=== PATIENT | male | born 1990 | race Hispanic/Latino ===

== ENCOUNTER 2016-12-05 03:15 | Emergency (ER) | payer OTHER ==
[2016-12-05 03:31] VITALS: BP 112/68; PULSE 133; RESP 17; O2SAT 100
[2016-12-05] MEDS ORDERED: Sodium Chloride 0.9% 1,000 ML IV STA (03:44)
[2016-12-05] MEDS ORDERED: Dexamethasone 10 MG in Sodium Chloride 0.9% 50 ML IV STA (03:44)
--- NOTE | 2016-12-05 04:13 | ED PDOC ---
HPI: General Adult Time Seen by Provider: 12/05/16 03:24 Chief Complaint (Nursing): Flu-like Symptoms Chief Complaint (Provider): Flu-Like Symptoms History Per: Patient History/Exam Limitations: no limitations Onset/Duration Of Symptoms: Days (x4) Current Symptoms Are (Timing): Still Present Additional Complaint(s): 3:24 Abbe Syed is a 26 year old male with a past medical history of psoriasis that presents to the ED with a chief complaint of a fever that he has been experiencing for the last four days with associated vomiting, diarrhea, myalgias , fatigue, and sore throat. Patient states that he was seen yesterday by a nurse practitioner at an Urgent Care facility, where he was tested for the flu and strep throat. He was prescribed viscous Lidocaine, which he reports gave him some relief of his symptoms. However, his high temperature of 103.7 Fahrenheit this mornign concerned him, and prompted his visit to the ED. He states that despite his intermittent vomiting and diarrhea he has largely been able to drink fluids. Patient reports noticing and enlargement of the glands in his neck, and denies any abdominal pain, cough, or rhinorrhea. PMD: [facility] Past Medical History Reviewed: Historical Data, Nursing Documentation, Vital Signs Vital Signs: Last Vital Signs Temp 102.7 F H 12/05/16 03:28 Pulse 133 H 12/05/16 03:28 Resp 17 12/05/16 03:28 BP 112/68 12/05/16 03:28 Pulse Ox 100 12/05/16 04:22 - Medical History Other PMH: psoriasis - Family History Family History: States: Unknown Family Hx - Home Medications Home Medications: Ambulatory Orders Medication Instructions Recorded Ondansetron ODT [Zofran ODT] 4 mg PO Q6 PRN #16 odt 12/05/16 - Allergies Allergies/Adverse Reactions: Allergies Allergy/AdvReac Type Severity Reaction Status Date / Time No Known Allergies Allergy Verified 12/05/16 03:28 Review of Systems Constitutional: Positive for: Fever, Chills, Malaise, Other (Body Aches) ENT: Negative for: Nose Discharge Respiratory: Negative for: Cough Gastrointestinal: Positive for: Vomiting, Diarrhea. Negative for: Abdominal Pain Physical Exam - Reviewed Nursing Documentation Reviewed: Yes Vital Signs Reviewed: Yes - Physical Exam Appears: Positive for: Non-toxic, No Acute Distress Head Exam: Positive for: ATRAUMATIC, NORMOCEPHALIC Skin: Positive for: Normal Color, Warm, Dry, Rash (diffuse psoriatic rash) ENT: Positive for: Pharynx Is (erythemous), Tonsillar Swelling (tonsils enlarged bilaterally, but no exudate; 2+), Other (dry mucous membranes). Negative for: Tonsillar Exudate Cardiovascular/Chest: Negative for: Regular Rate, Rhythm (tachycardic) Lymphatic: Positive for: Adenopathy (cervical anterior adenopathy that is more prominent on the right ) Neurologic/Psych: Positive for: Alert, Oriented Comments: Patient is febrile - Laboratory Results Result Diagrams: 12/05/16 04:26 12/05/16 04:26 - ECG O2 Sat by Pulse Oximetry: 100 (RA) Pulse Ox Interpretation: Normal Medical Decision Making Medical Decision Makin:44 Initial Impression: 26 year old male with fever and sore throat Initial Plan: * CMP * CBC * Flu Swab * Rapid Strep * [place] * Blood Culture * Decadron 10 mg IV * Sodium Chloride 1000 mL at 1000 mLs/hr * Tylenol 975 mg PO * Reevaluation 5:25 Labs reviewed, no clinical abnormalities. Patient reports significant improvement in symptoms, stable for discharge home. Provider discussed lab results at length, and the fact that negative mono does not entirely exclude mono. In the provider's opinion, patient's clinical presentation is highly suggestive of mono, and patient was given information regarding mono. Rx for Zofran provided, and patient will follow up with [facility]. Scribe Attestation: Documented by Tamica Sanches, acting as a scribe for Uday Griggs MD. Provider Scribe Attestation: All medical record entries made by the Scribe were at my direction and personally dictated by me. I have reviewed the chart and agree that the record accurately reflects my personal performance of the history, physical exam, medical decision making, and the department course for this patient. I have also personally directed, reviewed, and agree with the discharge instructions and disposition. Disposition - Clinical Impression Clinical Impression: Pharyngitis, Mononucleosis syndrome - Disposition Referrals: [facility] [Outside] [facility] [Outside] Disposition: Routine/Home Disposition Time: 05:25 Condition: STABLE Prescriptions: Ondansetron ODT [Zofran ODT] 4 mg PO Q6 PRN #16 odt PRN Reason: Nausea/Vomiting Instructions: Mononucleosis (ED)
[2016-12-05 04:31] LABS: BASO % 0.3 % (0.0-2.0); EOS % 0.1 % (0.0-4.0); HEMATOCRIT 39.6 % (35.0-51.0); LYMPH # 0.9 K/uL (1.0-4.3); LYMPH % 7.7 % (20.0-40.0); MEAN CORPUSCULAR HEMOGLOBIN 28.6 pg (27.0-31.0); MEAN CORPUSCULAR HGB CONC 34.4 g/dL (33.0-37.0); MEAN PLATELET VOLUME 7.6 fl (7.2-11.7); MONO # 1.7 K/uL (0.0-0.8); MONO % 13.9 % (0.0-10.0); NEUT # 9.6 K/uL (1.8-7.0); PLATELET COUNT 215 K/uL (130-400); RED CELL DISTRIBUTION WIDTH 12.8 % (11.5-14.5); WHITE BLOOD COUNT 12.3 K/uL (4.8-10.8)
[2016-12-05 04:44] LABS: ALB/GLOB RATIO 1.1 (1.0-2.1); ALKALINE PHOSPHATASE 75 U/L (38-126); ALT/SGPT 51 U/L (21-72); AST/SGOT 42 U/L (17-59); BLOOD UREA NITROGEN 10 mg/dl (9-20); CALCIUM 8.9 mg/dL (8.4-10.2); CARBON DIOXIDE 26 mmol/L (22-30); CHLORIDE 98 mmol/L (98-107); GFR AFRICAN-AMERICAN > 60; GLUCOSE,RANDOM 121 mg/dL (75-110); POTASSIUM 4.1 MMOL/L (3.6-5.0); SODIUM 133 mmol/l (132-148); TOTAL PROTEIN 7.5 G/DL (6.3-8.2)
[2016-12-05 05:52] VITALS: TEMP 98.6
[2016-12-05 06:08] LABS: NEUTROPHIL 83 % (42-75); TOTAL CELLS COUNTED 100
== END 2016-12-05 06:32 | disposition home or self-care (01) ==
LOC: H.ER 03:15
DX: J02.9 Acute pharyngitis, unspecified (principal); B27.90 Infectious mononucleosis, unspecified without complication; L40.9 Psoriasis, unspecified